=== PATIENT | male | born 1975 | race Asian ===

== ENCOUNTER 2021-11-14 08:24 | Emergency (ER) | payer OTHER ==
[2021-11-14 08:33] VITALS: BP 134/80; PULSE 94; RESP 19; TEMP 98.3; BMI 29.5
== END 2021-11-14 10:17 | disposition home or self-care (01) ==
LOC: JERFT 08:24 → JER 08:24 → JERFT 10:17
PROC: 0H98XZZ Drainage of Buttock Skin, External Approach (ICD-10-PCS; principal; 2021-11-14)
DX: L02.31 Cutaneous abscess of buttock (principal)
CPT/HCPCS: 99282-25

== ENCOUNTER 2021-11-16 13:59 | Emergency (ER) | payer OTHER ==
[2021-11-16 14:03] VITALS: BP 127/87; PULSE 86; RESP 18; TEMP 97.9; BMI 29.2
[2021-11-16] MEDS ORDERED: LIDOCAINE HCL 2% (50ML VIAL) INF ONE (14:15)
== END 2021-11-16 14:47 | disposition home or self-care (01) ==
LOC: JERFT 13:59
PROC: 0H98XZZ Drainage of Buttock Skin, External Approach (ICD-10-PCS; principal; 2021-11-16)
DX: L02.31 Cutaneous abscess of buttock (principal)
CPT/HCPCS: 99283-25

== ENCOUNTER 2021-11-18 11:55 | Emergency (ER) | payer OTHER ==
[2021-11-18 12:16] VITALS: BP 123/63; PULSE 91; RESP 18; TEMP 98.8; BMI 29.5
== END 2021-11-18 13:42 | disposition home or self-care (01) ==
LOC: JER 11:55 → JERFT 11:55
DX: Z48.00 Encounter for change or removal of nonsurgical wound dressing (principal)
CPT/HCPCS: 99281-25

== ENCOUNTER 2022-05-24 10:04 | Emergency (ER) | payer OTHER ==
[2022-05-24 10:11] VITALS: BP 120/76; PULSE 74; RESP 18; TEMP 97.7; BMI 29.0
[2022-05-24] MEDS ORDERED: KETOROLAC TROMETHAMINE 30 MG/1 ML VIAL IM ONE (12:03)
[2022-05-24] MEDS ORDERED: KETOROLAC TROMETHAMINE 30 MG/1 ML VIAL ONE (12:08)
== END 2022-05-24 12:11 | disposition home or self-care (01) ==
LOC: JERFT 10:04 → JER 10:04 → JERFT 12:11
PROC: 3E0233Z Introduction of Anti-inflammatory into Muscle, Percutaneous Approach (ICD-10-PCS; principal; 2022-05-24)
DX: S96.911A Strain of unspecified muscle and tendon at ankle and foot level, right foot, initial encounter (principal); X50.1XXA Overexertion from prolonged static or awkward postures, initial encounter
CPT/HCPCS: 73610-TC-RT-FY; 73630-TC-RT-FY; 99284-25

== ENCOUNTER 2022-08-06 09:12 | Emergency (ER) | payer OTHER ==
[2022-08-06 09:20] VITALS: BP 112/82; PULSE 78; RESP 17; TEMP 98; BMI 29.1
== END 2022-08-06 12:25 | disposition home or self-care (01) ==
LOC: JER 09:12
PROC: 0H98XZZ Drainage of Buttock Skin, External Approach (ICD-10-PCS; principal; 2022-08-06)
DX: M54.50 Low back pain, unspecified (principal); R22.2 Localized swelling, mass and lump, trunk; L02.31 Cutaneous abscess of buttock
CPT/HCPCS: 99283-25